=== PATIENT | female | born 1965 | race Caucasian/White ===

== ENCOUNTER → 2016-08-16 | Outpatient (CLI) | payer OTHER ==
[~2016-08-16] MED LIST: CETI5TAB5 PO; CETITAB27 PO; CHOL20007 PO; ESCI10TA17 PO; ESCI1TAB18 PO; JUICE PLUS PO; MISCCAP80 PO; MULT1PAK6 PO; THRIVE PO; ZINC1TAB PO
--- NOTE | 2016-08-16 13:30 | MAMMOGRAPHY REPORT ---
BILATERAL DIGITAL SCREENING MAMMOGRAM TOMOSYNTHESIS WITH CAD: 08/16/2016 CLINICAL HISTORY: Routine screening. Patient has no complaints. TECHNIQUE: Breast tomosynthesis in addition to standard 2D mammography was performed. Current study was also evaluated with a Computer Aided Detection (CAD) system. COMPARISON: Comparison is made to exams dated: 08/11/2015 mammogram, 07/30/2013 mammogram, 08/05/2014 mammogram, 07/31/2012 ultrasound, 07/25/2012 mammogram, and 01/30/2013 mammogram - [facility]. BREAST COMPOSITION: The tissue of both breasts is heterogeneously dense, which may obscure small ma sses. FINDINGS: No suspicious masses, calcifications, or areas of architectural distortion are noted in e ither breast. There has been no significant interval change compared to prior exams. Bilateral tash gn-appearing calcifications are not significantly changed. IMPRESSION: ACR BI-RADS CATEGORY 2: BENIGN There is no mammographic evidence of malignancy. A 1 year screening mammogram is recommended. The p atient will receive written notification of the results. Approximately 10% of breast cancers are not detected with mammography. A negative mammographic repor t should not delay biopsy if a clinically suggestive mass is present. Anna Cardona M.D. ah/:08/16/2016 12:50:57 Oncology Rn: Marychuy Philippe, [facility] letter sent: Normal 1/2 BI-RADS Code: ACR BI-RADS Category 2: Benign
== END | disposition home or self-care (01) ==
LOC: C.MAMM 09:20
PROVIDERS: ATTEND Nurse Practitioner
DX: Z12.31 Encounter for screening mammogram for malignant neoplasm of breast (principal)

== ENCOUNTER 2016-09-10 10:13 | Emergency (ER) | payer OTHER ==
[~2016-09-10] VITALS: Ht 162.6 cm; Wt 70.9 kg
[~2016-09-10 10:13] MED LIST changes: -CETITAB27 PO; -CHOL20007 PO; -ESCI1TAB18 PO; -MISCCAP80 PO; -THRIVE PO
[2016-09-10 10:20] VITALS: TEMP 37; Ht 162.6 cm; Wt 70.9 kg
[2016-09-10] MEDS ORDERED: SODIUM CHLORIDE 0.9% 1000ML 1,000 ML IV STA (10:29)
--- NOTE | 2016-09-10 10:42 | EMERGENCY ROOM VISIT NOTE ---
History Report prepared by Cb: Cally Gutierrez Under the Supervision of: Dr. Ariela Kay M.D. First contact with patient: 10:18 Chief Complaint: CHEST PAIN Stated Complaint: CP, SOB History of Present Illness The patient is a 51 year old female who presents to the Emergency Room with complaints of waxing and waning chest pain that began several days ago. She also complains of occasionally feeling short of breath. She had some worsening of her symptoms 3 days ago but they were less intense over the past two days. Last night, she notes eating a Whopper and jamaican fries for dinner. Afterwards, she felt very bloated and uncomfortable and felt as if she overate. Through the night, she was nauseated and her chest pain increased slightly. This morning, the patient's pain increased again while she was doing a cardio work out. The pain radiated through her neck, left arm, and shoulder blades. She also had increased shortness of breath at that time. She called her PCP to make an appointment and spoke with the nurse who referred her to the ER. Currently, her chest pain is improved compared to earlier because she has been resting. She states that it is slightly more difficult to take a deep breath compared to baseline. She smokes a pack of cigarettes a day. There is a family history of heart disease in her extended family, but not in her parents or siblings. There is a family history of gallbladder disease. She does not take hormones. The patient has a history of a partial hysterectomy, but denies other abdominal surgeries. Source of History: patient Onset: several days ago Position: chest Timing: waxes/wanes Modifying Factors (Relieving): rest Associated Symptoms: + SOB, + nausea Review of Systems See HPI for pertinent positives & negatives. A total of 10 systems reviewed and were otherwise negative. Past Medical & Surgical Surgical Problems: (1) History of partial hysterectomy Family History Cancer Diabetes mellitus Gallbladder disease Heart disease Hypertension Kidney disease Lung disease Social History Smoking Status: Current Every Day Smoker Marital Status: Housing Status: lives with family Occupation Status: employed Current/Historical Medications Scheduled Cetirizine/Pseudoephedrine (Zyrtec-D Er 5MG/120MG), 1 TAB PO DAILY Escitalopram (Lexapro), 10 MG PO HS Multiple Vitamins W/ Minerals (Emergen-C Vitamin C), 1 DOSE PO QPM Probiotic Product (Probiotic), 1 CAP PO DAILY Zinc Gluconate (Zinc), 1 TAB PO QAM [Juice Plus], 1 DOSE PO QAM Allergies Coded Allergies: No Known Allergies (Verified , 09/10/16) Physical Exam Vital Signs Date Time Temp Pulse Resp B/P Pulse Ox O2 Delivery O2 Flow Rate FiO2 09/10/16 16:22 100 Room Air 09/10/16 15:26 82 18 130/77 98 Room Air 09/10/16 13:08 69 09/10/16 12:36 122/80 09/10/16 12:29 73 13 97 09/10/16 11:59 66 11 100 09/10/16 11:54 71 16 122/80 100 Room Air 09/10/16 10:58 74 12 98 09/10/16 10:53 73 12 97 09/10/16 10:48 76 18 96 09/10/16 10:43 76 15 96 09/10/16 10:38 78 17 96 09/10/16 10:33 80 12 98 09/10/16 10:28 87 16 97 09/10/16 10:25 84 09/10/16 10:23 131/86 09/10/16 10:20 37.0 85 18 131/86 99 Room Air 09/10/16 10:20 99 Room Air Physical Exam Vital signs reviewed. General: Well-appearing 51 year old female, in no significant distress. HEENT: No scleral icterus, PERRLA, neck supple. Atraumatic. Cardiovascular: Regular rate and rhythm, no extra sounds. Pulmonary: Clear to auscultation bilaterally, normal work of breathing. Abdomen: Soft, nontender, nondistended, positive bowel sounds. Musculoskeletal: Atraumatic, no peripheral edema. Neurologic: Patient awake alert and oriented x 3, full strength in all 4 extremities. Cranial nerves 2 through 12 grossly intact. Skin: Warm, dry, no rash Medical Decision & Procedures ER Provider Diagnostic Interpretation: Radiology results as stated below per my review and radiologist interpretation: SINGLE VIEW CHEST CLINICAL HISTORY: Atypical chest pain. Dyspnea. FINDINGS: An AP, portable, upright chest radiograph is obtained. No prior studies are available for comparison at the time of dictation. The examination is degraded by portable technique and patient rotation. The cardiomediastinal silhouette is unremarkable. The lungs and pleural spaces are clear. No pneumothorax is seen. The skeletal structures appear osteopenic. The bony thorax is grossly intact. IMPRESSION: No acute cardiopulmonary abnormality. Electronically signed by: Flex Issa M.D. 09/10/2016 10:51 AM Dictated Date/Time: 09/10/2016 10:51 AM ULTRASOUND RIGHT UPPER QUADRANT ABDOMEN CLINICAL HISTORY: Atypical chest pain. COMPARISON STUDY: Abdominal CT dated 08/14/2006. TECHNIQUE: Real-time, grayscale, and color flow sonography of the right upper quadrant of the abdomen was performed. Images are reviewed in the transverse and longitudinal planes. FINDINGS: Liver: The liver is normal in size. The liver demonstrates heterogeneously increased echotexture suggesting steatosis. There is no intrahepatic biliary ductal dilatation. The main portal vein is patent. Gallbladder: The gallbladder is contracted. Focal adenomyomatosis is suggested in the fundus. No shadowing gallstones are identified. There is no gallbladder wall thickening or pericholecystic fluid. A sonographic Deluna's sign is reportedly absent. The common bile duct measures up to 0.4 cm in diameter. Pancreas: Visualized portions of the pancreatic head are normal in appearance. The majority of the pancreas was not well visualized. Right kidney: Survey images of the right kidney demonstrate normal size and echotexture. There is no hydronephrosis. Ascites: None. IMPRESSION: 1. No acute sonographic abnormality is identified. No shadowing gallstones are seen. 2. Findings suggest mild hepatic steatosis. Electronically signed by: Flex Issa M.D. 09/10/2016 11:49 AM Dictated Date/Time: 09/10/2016 11:47 AM Laboratory Results 09/10/16 10:32 Red Blood Count 4.53, Mean Corpuscular Volume 91.8, Mean Corpuscular Hemoglobin 32.5, Mean Corpuscular Hemoglobin Concent 35.3, Mean Platelet Volume 10.2, Neutrophils (%) (Auto) 55.9, Lymphocytes (%) (Auto) 34.7, Monocytes (%) (Auto) 7.2, Eosinophils (%) (Auto) 1.3, Basophils (%) (Auto) 0.7, Neutrophils # (Auto) 3.44, Lymphocytes # (Auto) 2.13, Monocytes # (Auto) 0.44, Eosinophils # (Auto) 0.08, Basophils # (Auto) 0.04 09/10/16 10:32 Test 09/10/16 10:32 09/10/16 10:38 09/10/16 11:50 09/10/16 12:49 White Blood Count 6.14 K/uL (4.8-10.8) Red Blood Count 4.53 M/uL (4.2-5.4) Hemoglobin 14.7 g/dL (12.0-16.0) Hematocrit 41.6 % (37-47) Mean Corpuscular Volume 91.8 fL (80-100) Mean Corpuscular Hemoglobin 32.5 pg (25-34) Mean Corpuscular Hemoglobin Concent 35.3 g/dl (32-36) Platelet Count 210 K/uL (130-400) Mean Platelet Volume 10.2 fL (7.4-10.4) Neutrophils (%) (Auto) 55.9 % Lymphocytes (%) (Auto) 34.7 % Monocytes (%) (Auto) 7.2 % Eosinophils (%) (Auto) 1.3 % Basophils (%) (Auto) 0.7 % Neutrophils # (Auto) 3.44 K/uL (1.4-6.5) Lymphocytes # (Auto) 2.13 K/uL (1.2-3.4) Monocytes # (Auto) 0.44 K/uL (0.11-0.59) Eosinophils # (Auto) 0.08 K/uL (0-0.5) Basophils # (Auto) 0.04 K/uL (0-0.2) RDW Standard Deviation 44.3 fL (36.4-46.3) RDW Coefficient of Variation 13.2 % (11.5-14.5) Immature Granulocyte % (Auto) 0.2 % Immature Granulocyte # (Auto) 0.01 K/uL (0.00-0.02) Prothrombin Time 9.8 SECONDS (9.0-12.0) Prothromb Time International Ratio 0.9 (0.9-1.1) Activated Partial Thromboplast Time 25.2 SECONDS (21.0-31.0) Partial Thromboplastin Ratio 1.0 Anion Gap 8.0 mmol/L (3-11) Est Creatinine Clear Calc Drug Dose 81.3 ml/min Estimated GFR () 99.6 Estimated GFR (Non- 86.0 BUN/Creatinine Ratio 14.0 (10-20) Calcium Level 9.2 mg/dl (8.5-10.1) Total Bilirubin 0.2 mg/dl (0.2-1) Direct Bilirubin mg/dl (0-0.2) Aspartate Amino Transf (AST/SGOT) 25 U/L (15-37) Alanine Aminotransferase (ALT/SGPT) 51 U/L (12-78) Alkaline Phosphatase 91 U/L (45-117) Total Creatine Kinase 92 U/L (26-192) Creatine Kinase MB 1.0 ng/ml (0.5-3.6) Creatine Kinase MB Ratio 1.1 (0-3.0) Total Protein 7.7 gm/dl (6.4-8.2) Albumin 3.9 gm/dl (3.4-5.0) Chemistry Specimen Hemolysis Bedside D-Dimer 131 ng/mlFEU (0-450) Urine Color YELLOW Urine Appearance CLEAR (CLEAR) Urine pH 7.0 (4.5-7.5) Urine Specific [place] 1.000 (1.000-1.030) Urine Protein NEG (NEG) Urine Glucose (UA) NEG (NEG) Urine Ketones NEG (NEG) Urine Occult Blood NEG (NEG) Urine Nitrite NEG (NEG) Urine Bilirubin NEG (NEG) Urine Urobilinogen NEG (NEG) Urine Leukocyte Esterase NEG (NEG) Bedside Troponin I 0.000 ng/ml (0-0.045) Laboratory results per my review. Medications Administered Medications (Trade) Dose Ordered Sig/Livan Route Start Time Stop Time Status Last Admin Dose Admin Sodium Chloride (Nss 1000ml) 1,000 ml @ 125 mls/hr Q8H STAT IV 09/10/16 10:29 09/10/16 15:36 DC 09/10/16 10:35 125 MLS/HR ECG Indication: chest pain Rate (beats per minute): 78 Rhythm: normal sinus Findings: no acute ischemic change, no ectopy ED Course 1030: The patient was evaluated in room B9. A complete history and physical examination was performed. Ordered NSS 1000 ml @ 125 mls/hr IV. 1220: I discussed the case with Dr. Estrella - [facility]. The patient will have a stress test. 1459: Upon reevaluation, the patient was resting comfortably. She passed her stress test. I discussed findings with her. She verbalized agreement of the treatment plan. The patient was discharged home. Medical Decision Differential diagnosis: Acute coronary syndrome, pulmonary embolus, aortic dissection, musculoskeletal pain, pneumonia, pleural effusion, pneumothorax, cholecystitis. This patient was evaluated and appeared to be in no significant distress. IV access was obtained and laboratory work was drawn. EKG reveals no evidence of acute ischemia. Patient's symptoms are not exactly typical. Ultrasound of right upper quadrant was performed and is negative. Patient was hydrated with normal saline solution. Laboratory work reveals negative cardiac enzymes 2. Chest x-ray is negative. I did discuss the case with cardiology who agreed to perform a stress test today. The patient was advised of the plan and agrees. She did well with this exam and was discharged follow-up with primary care physician. She was advised to stop smoking. She will return to the ER for worsening of symptoms or any medical concerns. Consults Time Called: 1214 Consulting Physician: Dr. Delores Lal [facility] Returned Call: 1220 I discussed the case with him. The patient will have a stress test. Impression Primary Impression: Non-cardiac chest pain Scribe Attestation The scribe's documentation has been prepared under my direction and personally reviewed by me in its entirety. I confirm that the note above accurately reflects all work, treatment, procedures, and medical decision making performed by me. Departure Information Dispostion Home / Self-Care Referrals Nasrin Boothe C.R.N.P (PCP) Patient Instructions My [facility] Additional Instructions Diagnosis: Chest pain Ibuprofen 600 mg every 6 hours as needed for pain with food. Follow-up with your physician this week for reevaluation. Return to the ER for worsening of symptoms or any medical concerns.
[2016-09-10] MEDS ORDERED: MISCCAP80 PO (10:43)
[2016-09-10] MEDS ORDERED: CETITAB27 PO (10:43)
[2016-09-10 10:52] LABS: BASO % 0.7 %; BASO ABS # 0.04 K/uL (0-0.2); COMPLETE YES; EOS % 1.3 %; HEMATOCRIT 41.6 % (37-47); IG% 0.2 %; LYMPH % 34.7 %; LYMPH ABS # 2.13 K/uL (1.2-3.4); MEAN CELL VOLUME 91.8 fL (80-100); MEAN CORPUSCULAR HEMOGLOBIN 32.5 pg (25-34); MEAN CORPUSCULAR HGB CONC 35.3 g/dl (32-36); MEAN PLATELET VOLUME 10.2 fL (7.4-10.4); MONO % 7.2 %; NEUT % 55.9 %; PLATELET COUNT 210 K/uL (130-400); RED BLOOD COUNT 4.53 M/uL (4.2-5.4); WHITE BLOOD COUNT 6.14 K/uL (4.8-10.8)
--- NOTE | 2016-09-10 10:53 | DIAGNOSTIC IMAGING REPORT ---
SINGLE VIEW CHEST CLINICAL HISTORY: Atypical chest pain. Dyspnea. FINDINGS: An AP, portable, upright chest radiograph is obtained. No prior studies are available for comparison at the time of dictation. The examination is degraded by portable technique and patient rotation. The cardiomediastinal silhouette is unremarkable. The lungs and pleural spaces are clear. No pneumothorax is seen. The skeletal structures appear osteopenic. The bony thorax is grossly intact. IMPRESSION: No acute cardiopulmonary abnormality. Electronically signed by: Flex Issa M.D. 09/10/2016 10:51 AM Dictated Date/Time: 09/10/2016 10:51 AM
[2016-09-10 11:09] LABS: INR 0.9 (0.9-1.1); PROTHROMBIN TIME (PATIENT) 9.8 SECONDS (9.0-12.0)
[2016-09-10 11:19] LABS: ALKALINE PHOSPHATASE 91 U/L (45-117); ALT/SGPT 51 U/L (12-78); AST/SGOT 25 U/L (15-37); BLOOD UREA NITROGEN 11 mg/dl (7-18); CALCIUM 9.2 mg/dl (8.5-10.1); CARBON DIOXIDE 28 mmol/L (21-32); CHLORIDE 103 mmol/L (98-107); CKMB/CK RATIO 1.1 (0-3.0); GLUCOSE 84 mg/dl (70-99); SODIUM 139 mmol/L (136-145)
--- NOTE | 2016-09-10 11:50 | DIAGNOSTIC IMAGING REPORT ---
ULTRASOUND RIGHT UPPER QUADRANT ABDOMEN CLINICAL HISTORY: Atypical chest pain. COMPARISON STUDY: Abdominal CT dated 08/14/2006. TECHNIQUE: Real-time, grayscale, and color flow sonography of the right upper quadrant of the abdomen was performed. Images are reviewed in the transverse and longitudinal planes. FINDINGS: Liver: The liver is normal in size. The liver demonstrates heterogeneously increased echotexture suggesting steatosis. There is no intrahepatic biliary ductal dilatation. The main portal vein is patent. Gallbladder: The gallbladder is contracted. Focal adenomyomatosis is suggested in the fundus. No shadowing gallstones are identified. There is no gallbladder wall thickening or pericholecystic fluid. A sonographic Deluna's sign is reportedly absent. The common bile duct measures up to 0.4 cm in diameter. Pancreas: Visualized portions of the pancreatic head are normal in appearance. The majority of the pancreas was not well visualized. Right kidney: Survey images of the right kidney demonstrate normal size and echotexture. There is no hydronephrosis. Ascites: None. IMPRESSION: 1. No acute sonographic abnormality is identified. No shadowing gallstones are seen. 2. Findings suggest mild hepatic steatosis. Electronically signed by: Flex Issa M.D. 09/10/2016 11:49 AM Dictated Date/Time: 09/10/2016 11:47 AM
[2016-09-10 12:14] LABS: URINE APPEARANCE CLEAR (CLEAR); URINE BILIRUBIN NEG (NEG); URINE COLOR YELLOW; URINE NITRITE NEG (NEG); UROBILINOGEN NEG (NEG); ZZUR CULT IF INDIC CLEAN CATCH NO
[2016-09-10 12:27] LABS: MANUAL MICROSCOPIC REQUIRED? NO; REVIEW REQ? NO
[2016-09-10 15:26] VITALS: BP 130/77; PULSE 82; O2SAT 98
--- NOTE | 2016-09-10 15:30 | EXERCISE STRESS ECHO ---
*NOTICE TO RECEIVING DEMOCRAT AGENCY This information is strictly Confidential and protected under [place] law. [place] law prohibits you from making any further disclosure of this information unless further disclosure is expressly permitted by the written consent of the person to whom it pertains or is authorized by law. A general authorization for the release of medical or other information is not sufficient for this purpose. Hospital accepts no responsibility if the information is made available to any other person, INCLUDING THE PATIENT. Interpretation Summary * Name: VERN LACY Study Date: 09/10/2016 01:31 PM BP: 129/72 mmHg * Patient Location: .ED HR: 69 * : 1965 (M/d/yyyy) Gender: Female Height: 64 in * Age: 51 yrs Ethnicity: CA Weight: 156 lb * Ordering Physician: Ariela Kay * Referring Physician: Self, Referred * Performed By: Long Kelly RCS * * Reason For Study: Chest Pain * BSA: 1.8 m2 * This was a normal stress echocardiogram. * Baseline ECG was essentially normal. No symptoms were noted. * RESTING STUDY: Normal left ventricular cavity size, myocardial thickness, wall motion, and systolic function. * Stress wall motion was normal. * -- Conclusions -- * 1. Negative stress echocardiogram for myocardial ischemia at 99% MPHR. * 2. Negative ECG portion of exercise treadmill test. * 3. Appropriate hemodynamic response to exercise. * 4. No exercise induced symptoms. * 5. No ectopy. * 6. Very good exercise tolerance. NYHA Functional Class I. 12 MET WORKLOAD. Procedure Details * ECHOEX, CPT #07410 Left Ventricle * The left ventricle is grossly normal size. * There is normal left ventricular wall thickness. * The left ventricular ejection fraction increases normally with stress. The left ventricular end-systolic cavity size reduces post-stress (normal response). The left ventricular wall motion with stress is normal. * Resting wall motion: Normal. Stress wall motion: Appropriate increase in Left ventricular systolic function and decrease in cavity size. No stress induced segmental wall motion abnormalities. Stress Parameters * The stress portion of this study was personally supervised by the undersigned interpreting physician. * Rest heart rate was '69' BPM. * Rest blood pressure was '129/72' * Maximum heart rate achieved was 169 bpm. * Maximum heart rate was 99 % of maximum age-predicted heart rate. * Maximum blood pressure was '163/93' * Total exercise time was '10:00' * Maximum exercise MET level achieved was '11.7' METS * Maximum treadmill speed was '4.2' miles per hour. * Maximum treadmill elevation was '16'% grade. * Exercise was terminated due to 'fatigue' * Normal blood pressure response to exercise.
[2016-09-10 16:22] VITALS: O2SAT 100
[2017-03-11] MEDS ORDERED: CHOL20007 PO (07:35)
[2017-03-11] MEDS ORDERED: ESCI1TAB18 PO (07:35)
[2017-03-11] MEDS ORDERED: THRIVE PO (07:35)
== END 2016-09-10 15:32 | disposition home or self-care (01) ==
LOC: C.EDB 10:14
DX: R07.89 Other chest pain (principal); F17.210 Nicotine dependence, cigarettes, uncomplicated; Z79.899 Other long term (current) drug therapy; Z80.9 Family history of malignant neoplasm, unspecified; Z83.79 Family history of other diseases of the digestive system; Z82.49 Family history of ischemic heart disease and other diseases of the circulatory system; Z84.1 Family history of disorders of kidney and ureter; Z83.6 Family history of other diseases of the respiratory system

== ENCOUNTER → 2017-03-19 | Day surgery (SDC) | payer OTHER ==
[2016-07-30 14:52] VITALS: BMI 24.0
[2017-03-11 07:36] VITALS: Ht 162.6 cm; Wt 63.6 kg
[~2017-03-19] VITALS: Ht 162.6 cm; Wt 63.6 kg
[~2017-03-19] MED LIST changes: +ATROPINE SULFATE 0.1 MG/ML 5ML SYR IV PRN; -CETI5TAB5 PO; +CHOL20007 PO; -ESCI10TA17 PO; +ESCI1TAB18 PO; +EpHEDrine SULFATE INJ 50 MG/ML AMP IV PRN; +LIDOCAINE HCL 2% 2 ML VIAL (20MG/ML) ONE; +MIDAZOLAM HCL 1 MG/ML 2ML VIAL ONE; -MULT1PAK6 PO; +PROPOFOL IV EMULSION 10 MG/ML 20 ML VIAL IV ONE; +SODIUM CHLORIDE 0.9% 500ML 500 ML IV ONE; +THRIVE PO; -ZINC1TAB PO
--- NOTE | 2017-03-19 09:44 | Endo History and Physical ---
History & Physical Date of Service: Mar 19, 2017. Chief Complaint: screening,family history of colon cancer Referring Physician: Nasrin PUENTE History of Present Illness 51 yo CF who presents for colonoscopy secondary to family history of colon cancer. Past Surgical History Hx Cardiac Surgery: No Hx Internal Defibrillator: No Hx Pacemaker: No Hx Abdominal Surgery: Yes (LAPAROSCOPY, CHIP) Hx of Implantable Prosthesis: No Hx Post-Op Nausea and Vomiting: No Hx Cancer Surgery: No Hx Thoracic Surgery: No Hx Orthopedic: No Hx Urinary Tract Surgery: No Family History Colon CA, Polyp Social History Smoking Status: Current Every Day Smoker Hx Substance Use: No Hx Alcohol Use: Yes (OCCASIONAL) Allergies Coded Allergies: No Known Allergies (Verified , 03/11/17) Current Medications Reported Home Medications Medications Dose Route/Sig Max Daily Dose Days Date Category [Thrive] 1 Dose PO QAM 03/11/17 Reported Vitamin D3 (Cholecalciferol) 2,000 Unit Tab 1 Tab PO DAILY 03/11/17 Reported Lexapro (Escitalopram Oxalate) 20 Mg Tab 20 Mg PO HS 03/11/17 Reported [Juice Plus] 1 Dose PO QAM 07/30/16 Reported Vital Signs Weight (Kilograms): 63.64 Height (Feet): 5 Height (Inches): 4 Date Time Temp Pulse Resp B/P (MAP) Pulse Ox O2 Delivery O2 Flow Rate FiO2 03/19/17 09:23 37.1 79 20 130/73 (92) 97 Room Air Physical Exam General Appearance: WD/WN, no apparent distress Respiratory/Chest: Auscultation: breath sounds normal Cardiovascular: Heart Auscultation: RRR Abdomen: Bowel Sounds: normal Inspection & Palpation: soft, non-distended, no tenderness, guarding & rebound Assessment and Plan Assessment: 51 yo CF who presents for colonoscopy secondary to family history of colon cancer. Plan: Proceed with colonoscopy.
--- NOTE | 2017-03-19 10:25 | Discharge Instructions ---
Endoscopy Patient Instructions Date / Procedure(s) Performed Mar 19, 2017. Colonoscopy Allergy Information Coded Allergies: No Known Allergies (Verified , 03/11/17) Discharge Date / Findings Mar 19, 2017. Internal hemorrhoids Fair bowel prep Medication Instructions Stopped Medication(s): stopped supplements on Saturday OK to resume all medications today as prescribed Reported Home Medications Medications Dose Route/Sig Max Daily Dose Days Date Category [Thrive] 1 Dose PO QAM 03/11/17 Reported Vitamin D3 (Cholecalciferol) 2,000 Unit Tab 1 Tab PO DAILY 03/11/17 Reported Lexapro (Escitalopram Oxalate) 20 Mg Tab 20 Mg PO HS 03/11/17 Reported [Juice Plus] 1 Dose PO QAM 07/30/16 Reported Provider Instructions Activity Restrictions - No exercising or heavy lifting for 24 hours. - Do not drink alcohol the day of the procedure. - Do not drive a car or operate machinery until the day after the procedure. - Do not make any important decisions or sign important papers in 24 hours after the procedure. Following Day: - Return to full activity which may include returning to work/school. Diet Start your diet with liquids and light foods (jello, soup, juice, toast). Then eat your usual diet if not nauseated. Treatment For Common After Affects For mild abdominal pain, bloating, or excessive gas: - Rest - Eat lightly - Lie on right side Follow-Up Information Follow-up with Nasrin PUENTE as scheduled Anesthesia Information What You Should Know You have had a procedure that required some medicine to reduce anxiety and discomfort. This treatment is called moderate sedation. After receiving the treatment, you may be sleepy, but you will be able to breathe on your own. The effects of the treatment may last for several hours. Follow these instructions along with Activity/Diet recommendations noted above: * Do NOT do anything where dizziness or clumsiness would be dangerous. * Rest quietly at home today, then you can be up and about tomorrow. * Have a responsible person stay with you the rest of today. * You may have had an I.V. today. If so, you may take the dressing off later today. Recommendations Call your doctor if: * Trouble breathing * Continuous vomiting for more than 24 hours * Temperature above 101 degrees * Severe abdominal pain or bloating * Pain not relieved by pain medicine ordered * There is increased drainage or redness from any incision * A large amount of rectal bleeding greater than 2-3 tablespoons. (If you had a polyp/s removed or have hemorrhoids, a small amount of blood - from the rectum is to be expected.) * You have any unanswered questions or concerns. IN THE EVENT OF A SERIOUS EMERGENCY, GO TO THE NEAREST EMERGENCY ROOM Your discharge instructions were prepared by provider Sumeet Lowe. Patient Instructions Signature Page Radha Farr Patient (or Guardian) Signature/Date: I have read and understand the instructions given to me by my caregivers. Caregiver/RN/Doctor Signature/Date: The above-named patient and/or guardian has received patient instructions on this date. + Original Patient Signature Page (only) stays with chart. Please make copy for patient.
--- NOTE | 2017-03-19 10:25 | GI REPORT ---
Procedure Date: 03/19/2017 9:42 AM Procedure: Colonoscopy Indications: Family history of colon cancer, Family history of colonic polyps in a first-degree relative Medicines: Monitored Anesthesia Care Complications: No immediate complications. Estimated Blood Loss: Estimated blood loss: none. Procedure: Pre-Anesthesia Assessment: - Prior to the procedure, a History and Physical was performed, and patient medications and allergies were reviewed. The patient's tolerance of previous anesthesia was also reviewed. The risks and benefits of the procedure and the sedation options and risks were discussed with the patient. All questions were answered, and informed consent was obtained. Prior Anticoagulants: The patient has taken no previous anticoagulant or antiplatelet agents. ASA Grade Assessment: II - A patient with mild systemic disease. After reviewing the risks and benefits, the patient was deemed in satisfactory condition to undergo the procedure. After I obtained informed consent, the scope was passed under direct vision. Throughout the procedure, the patient's blood pressure, pulse, and oxygen saturations were monitored continuously. The scope was introduced through the anus and advanced to the terminal ileum. The colonoscopy was performed without difficulty. The patient tolerated the procedure well. The quality of the bowel preparation was good. The terminal ileum, ileocecal valve, appendiceal orifice, and rectum were photographed. Findings: Non-bleeding internal hemorrhoids were found during retroflexion. The hemorrhoids were small. The exam was otherwise without abnormality. Impression: - Non-bleeding internal hemorrhoids. - The examination was otherwise normal. - No specimens collected. Recommendation: - Resume previous diet. - Continue present medications. - Repeat colonoscopy in 5 years for surveillance. - Return to primary care physician as previously scheduled. Sumeet Lowe, DO 03/19/2017 10:24:42 AM This report has been signed electronically. Note Initiated On: 03/19/2017 9:42 AM I attest to the content of the Intraoperative Record and orders documented therein, exceptions below
--- NOTE | 2017-03-19 10:27 | Anesthesiology Progress Note ---
Anesthesia Post Op Note Date & Time Mar 19, 2017 at 10:27 Vital Signs Pain Intensity: 0 Vital Signs Past 12 Hours Date Time Temp Pulse Resp B/P (MAP) Pulse Ox O2 Delivery O2 Flow Rate FiO2 03/19/17 10:18 36.9 70 20 86/53 (64) 97 Room Air 03/19/17 09:23 37.1 79 20 130/73 (92) 97 Room Air Notes Mental Status: alert / awake / arousable, participated in evaluation Pt Amnestic to Procedure: Yes Nausea / Vomiting: adequately controlled Pain: adequately controlled Airway Patency, RR, SpO2: stable & adequate BP & HR: stable & adequate Hydration State: stable & adequate Anesthetic Complications: no major complications apparent
[2017-03-19 10:48] VITALS: BP 113/73; PULSE 73; O2SAT 98
== END | disposition home or self-care (01) ==
LOC: C.GI 09:09
PROVIDERS: ATTEND Internal Medicine
DX: Z12.11 Encounter for screening for malignant neoplasm of colon (principal); K64.8 Other hemorrhoids; Z80.0 Family history of malignant neoplasm of digestive organs; Z83.71 Family history of colonic polyps; F17.200 Nicotine dependence, unspecified, uncomplicated; Z79.899 Other long term (current) drug therapy

== ENCOUNTER → 2017-08-22 | Outpatient (CLI) | payer OTHER ==
[~2017-08-22] MED LIST changes: -ATROPINE SULFATE 0.1 MG/ML 5ML SYR IV PRN; -EpHEDrine SULFATE INJ 50 MG/ML AMP IV PRN; -LIDOCAINE HCL 2% 2 ML VIAL (20MG/ML) ONE; -MIDAZOLAM HCL 1 MG/ML 2ML VIAL ONE; -PROPOFOL IV EMULSION 10 MG/ML 20 ML VIAL IV ONE; -SODIUM CHLORIDE 0.9% 500ML 500 ML IV ONE
--- NOTE | 2017-08-22 14:30 | MAMMOGRAPHY REPORT ---
BILATERAL DIGITAL SCREENING MAMMOGRAM TOMOSYNTHESIS WITH CAD: 08/22/2017 CLINICAL HISTORY: Routine screening. Patient has no complaints. TECHNIQUE: Breast tomosynthesis in addition to standard 2D mammography was performed. Current study was also evaluated with a Computer Aided Detection (CAD) system. COMPARISON: Comparison is made to exams dated: 08/16/2016 mammogram, 08/11/2015 mammogram, 08/05/2014 ma mmogram, 07/30/2013 mammogram, 01/30/2013 mammogram, and 07/31/2012 mammogram - [facility] nter. BREAST COMPOSITION: The tissue of both breasts is heterogeneously dense, which may obscure small mas ses. FINDINGS: No suspicious masses, calcifications, or areas of architectural distortion are noted in ei ther breast. There has been no significant interval change compared to prior exams. Scattered bilate ral benign-appearing calcifications are again noted. IMPRESSION: ACR BI-RADS CATEGORY 2: BENIGN There is no mammographic evidence of malignancy. A 1 year screening mammogram is recommended. The pa tient will receive written notification of the results. Approximately 10% of breast cancers are not detected with mammography. A negative mammographic report should not delay biopsy if a clinically suggestive mass is present. Anna Cardona M.D. ah/:08/22/2017 10:11:02 Pipe Washer: Marychuy STEVENS)(M), [facility] letter sent: Normal 1/2 BI-RADS Code: ACR BI-RADS Category 2: Benign
== END | disposition home or self-care (01) ==
LOC: C.MAMM 09:26
PROVIDERS: ATTEND Nurse Practitioner
DX: Z12.31 Encounter for screening mammogram for malignant neoplasm of breast (principal)

== ENCOUNTER → 2017-09-06 | Outpatient (CLI) | payer OTHER ==
--- NOTE | 2017-09-06 09:59 | DIAGNOSTIC IMAGING REPORT ---
C-SPINE ROUTINE 4 OR 5 VIEWS HISTORY: Pain CHRONIC NECK PAIN COMPARISON: None. FINDINGS: The cervical spine is visualized from C1 through the superior endplate of T1. There is no fracture. No subluxation. Mild degenerative disc change C5-C6. Prevertebral soft tissues and the atlantodens interval are intact. IMPRESSION: Mild degenerative disc change C5-C6. Otherwise negative study. The above report was generated using voice recognition software. It may contain grammatical, syntax or spelling errors. Electronically signed by: Akbar Sanchez M.D. 09/06/2017 9:58 AM Dictated Date/Time: 09/06/2017 9:55 AM
== END | disposition home or self-care (01) ==
LOC: C.RADPV 09:31
PROVIDERS: ATTEND Nurse Practitioner
DX: M54.2 Cervicalgia (principal)

== ENCOUNTER → 2017-11-26 | Outpatient (CLI) | payer OTHER | END | disposition home or self-care (01) | LOC: C.LABPVFM 07:47 | PROVIDERS: ATTEND Nurse Practitioner | DX: Z13.220 Encounter for screening for lipoid disorders (principal) ==